=== PATIENT | male | born 1940 | race Caucasian/White ===

== ENCOUNTER 2016-10-27 13:51 | Emergency (ER) | payer MEDICARE, OTHER | END 2016-10-27 15:24 | disposition home or self-care (01) | LOC: ER 13:51 | DX: S81.811A Laceration without foreign body, right lower leg, initial encounter (principal); K21.9 Gastro-esophageal reflux disease without esophagitis; G25.81 Restless legs syndrome; M06.9 Rheumatoid arthritis, unspecified; G47.30 Sleep apnea, unspecified; F32.9 Major depressive disorder, single episode, unspecified; Z79.899 Other long term (current) drug therapy; Z79.82 Long term (current) use of aspirin; Z88.8 Allergy status to other drugs, medicaments and biological substances; W18.30XA Fall on same level, unspecified, initial encounter; Y92.009 Unspecified place in unspecified non-institutional (private) residence as the place of occurrence of the external cause ==

== ENCOUNTER 2016-11-08 16:21 | Emergency (ER) | payer MEDICARE, OTHER | END 2016-11-08 17:17 | disposition home or self-care (01) | LOC: ER 16:21 | DX: S51.811D Laceration without foreign body of right forearm, subsequent encounter (principal); K21.9 Gastro-esophageal reflux disease without esophagitis; F32.9 Major depressive disorder, single episode, unspecified; G25.81 Restless legs syndrome; G47.30 Sleep apnea, unspecified; Z79.82 Long term (current) use of aspirin; Z79.899 Other long term (current) drug therapy; Z88.8 Allergy status to other drugs, medicaments and biological substances ==